=== PATIENT | male | born 1975 | race Caucasian/White ===

== ENCOUNTER 2022-05-27 15:19 | Outpatient (CLI) | payer OTHER, SELFPAY ==
[2022-05-27 21:46] LABS: Cholesterol* 259 mg/dL (90-199); HDL Cholesterol* 59 mg/dL (>=40); LDL Cholesterol Calculated 187 mg/dL (<100); Triglycerides* 66 mg/dL (40-149)
[2022-05-27 21:57] LABS: PSA Screen* 1.21 ng/mL (0.10-4.00)
== END 2022-05-27 15:20 | disposition home or self-care (01) ==
PROVIDERS: PCP Family Medicine; Visit Provider Family Medicine
DX: Z00.00 Encounter for general adult medical examination without abnormal findings (principal); F41.8 Other specified anxiety disorders; R79.89 Other specified abnormal findings of blood chemistry
CPT/HCPCS: 80061; 84153

== ENCOUNTER 2022-06-09 15:14 | Outpatient (CLI) | payer OTHER, SELFPAY | END 2022-06-09 15:15 | disposition home or self-care (01) | LOC: MRI 15:16 | PROVIDERS: PCP Family Medicine; Visit Provider Family Medicine | DX: M25.561 Pain in right knee (principal); M25.461 Effusion, right knee; M71.21 Synovial cyst of popliteal space [Baker], right knee | CPT/HCPCS: 73721 ==

== ENCOUNTER 2022-08-02 11:38 | Outpatient (CLI) | payer OTHER, SELFPAY | END 2022-08-02 11:39 | disposition home or self-care (01) | PROVIDERS: PCP Family Medicine; Visit Provider Surgery | DX: Z12.11 Encounter for screening for malignant neoplasm of colon (principal); K64.9 Unspecified hemorrhoids | CPT/HCPCS: 45378; 99153; J2250; J3010 ==